=== PATIENT | female | born 1970 | race Caucasian/White ===

== ENCOUNTER 2020-09-17 18:59 | Emergency (ER) | payer OTHER ==
[~2020-09-17 18:59] MED LIST: DULERA 100 MCG8.8 GM INH; LODINE CAP 300300 MG PO; ZOFRAN ODT 4 MG4 MG PO
[2020-10-04] MEDS ORDERED: VENTOLIN INHALER INH (08:29)
[2020-10-04] MEDS ORDERED: BREO ELLIPTA 21 EACH INH (08:29)
[2020-10-04] MEDS ORDERED: NAPROXEN SODIU220 M1 PO (08:30)
[2020-10-04] MEDS ORDERED: HYDROCODON-ACE1 EAC4 PO (12:15)
[2020-10-04] MEDS ORDERED: IBUPROFEN600 MG PO (12:15)
== END 2020-09-17 20:34 | disposition home or self-care (01) ==
LOC: ER1 18:59
DX: R10.9 Unspecified abdominal pain (principal); M54.9 Dorsalgia, unspecified; Z53.21 Procedure and treatment not carried out due to patient leaving prior to being seen by health care provider

== ENCOUNTER → 2020-09-23 | Outpatient (CLI) | payer OTHER ==
[~2020-09-23] MED LIST changes: +BREO ELLIPTA 21 EACH INH; +HYDROCODON-ACE1 EAC4 PO; +IBUPROFEN600 MG PO; +NAPROXEN SODIU220 M1 PO; +VENTOLIN INHALER INH
[2020-09-23 09:52] LABS: HEMOGLOBIN 11.4 gm/dl (12.3-15.3); RED BLOOD COUNT 4.56 M/UL (4.00-5.10); WHITE BLOOD COUNT 11.1 K/UL (4.5-11.0)
== END ==
LOC: OPSV2 08:56
PROVIDERS: Obstetrics & Gynecology
DX: Z01.818 Encounter for other preprocedural examination (principal); N93.9 Abnormal uterine and vaginal bleeding, unspecified; I51.7 Cardiomegaly; R94.31 Abnormal electrocardiogram [ECG] [EKG]
CPT/HCPCS: 36415; 81001; 85025; 93005

== ENCOUNTER → 2020-10-04 | Day surgery (SDC) | payer OTHER | END | disposition home or self-care (01) | LOC: OR 07:30 | DX: D06.9 Carcinoma in situ of cervix, unspecified (principal); D25.9 Leiomyoma of uterus, unspecified; N84.1 Polyp of cervix uteri; J45.909 Unspecified asthma, uncomplicated; F17.200 Nicotine dependence, unspecified, uncomplicated; Z88.1 Allergy status to other antibiotic agents; Z79.899 Other long term (current) drug therapy | CPT/HCPCS: J2001; J2250; J2270; J2405; J2704; J3010; J7120 ==